=== PATIENT | male | born 1955 | race Caucasian/White ===

== ENCOUNTER → 2016-09-12 | Outpatient (CLI) | payer BC ==
--- NOTE | 2016-09-12 10:30 | Diagnostic Imaging Report ---
CLINICAL INDICATION: Patient with left parotid tumor. Area marked with BB. Patient complains of pain and discomfort. EXAM: Axial CT scan of neck soft tissue performed with 100 cc of Omnipaque 300 IV contrast. Coronal and sagittal reformatted images were created. COMPARISON: None. FINDINGS: There are multiple enlarged masses, suspected lymph nodes, conglomerated in the left periparotid region. The largest measures 2.1 cm x 1.9 cm x 1.9 cm (AP x Trans x CC) . There is no significant adjacent fat stranding. This is seen beneath the left neck skin marker. There are also other enlarged lymph nodes involving both sides of the neck with the left side much more than the right side. The prominent lymph nodes on the right side of the neck are mainly seen in the subclavicular and upper chest region. The largest lymph node in the left side of the neck measures 1.6 cm x 2.2 cm x 2.8 cm (AP x Trans x CC) and is located in the left level III region of the neck. This is best seen on series 2, image 60. There is no other neck soft tissue mass seen besides the lymphadenopathy. The nasopharynx, oropharynx, hypopharynx, and laryngeal structures are relatively symmetric with no measurable mass seen. The visualized portion of the tongue and sublingual regions are unremarkable. The bilateral submandibular glands are unremarkable. Besides the enlarged masses/lymphadenopathy in the left parotid region, the left parotid gland is unremarkable. The right parotid gland is absent and may be from postop changes versus atrophy. The neck arterial and venous vascular structures are patent. There is a 12-mm low-density lesion in the right thyroid gland, which is measured in the craniocaudal dimension on the coronal plane. The visualized upper lung hagen are unremarkable. The visualized intracranial structures and orbits are unremarkable. There is cervical spine degenerative disease with hypertrophic spurs and facet arthropathy seen. There is mild mucosal thickening involving both maxillary sinuses and ethmoid sinus. There is mild/ moderate mucosal thickening in the sphenoid sinus. Temporal bone structures show no significant abnormality. IMPRESSION: 1. There is diffuse lymphadenopathy seen throughout both sides of the neck with the left side much more than the right. There is significant involvement in the left periparotid region beneath the left neck skin marker. Given the multiplicity and enlargement of these lymph nodes, neoplasm is of concern such as lymphoma. Although no other neoplasm is seen, metastatic disease also should be excluded. Tissue sample would better evaluate. 2. There is a roughly 12-mm low-density nodule in the right thyroid gland. Thyroid ultrasound would better evaluate. 3. The remainder of this exam shows no other significant abnormality for patient's age. Report was stat faxed to office of Dr. Leon Bustamante @ 10:29 AM/joanie. Dictated by: Dictated on workstation # [id number]
== END ==
LOC: RAD 09:11
PROVIDERS: ATTEND Family Medicine
DX: R22.1 Localized swelling, mass and lump, neck (principal)
CPT/HCPCS: 70491; Q9967

== ENCOUNTER → 2016-09-15 | Outpatient (CLI) | payer BC | LOC: LAB 15:17 | PROVIDERS: ATTEND Internal Medicine Hematology & Oncology | DX: D69.3 Immune thrombocytopenic purpura (principal) | CPT/HCPCS: 36415; 82784; 86038 ==